=== PATIENT | male | born 1965 ===

== ENCOUNTER 2020-11-02 12:34 | Emergency (ER) | payer BC ==
[2020-11-02 13:25] VITALS: BP 150/91; PULSE 100
[2020-11-02] MEDS ORDERED: Sodium Chloride 0.9% 10 ML Syringe FLUSH PRN (13:37)
--- NOTE | 2020-11-02 13:46 | EDM.PDOC ---
<Marcus Payan - Last Filed: 11/04/20 07:26> ED HPI GENERAL MEDICAL PROBLEM - General Chief Complaint: Respiratory Problem Stated Complaint: POSS COVID Time Seen by Provider: 11/02/20 13:20 - Related Data Allergies Allergy/AdvReac Type Severity Reaction Status Date / Time No Known Allergies Allergy Verified 02/08/16 16:58 Home Meds: Home Meds Citalopram [Celexa] 20 mg PO DAILY 11/02/14 [History] Fenofibric Acid (Choline) [Trilipix] 45 mg PO DAILY 11/02/14 [History] Omeprazole 20 mg PO DAILY 11/02/14 [History] Ibuprofen 200 mg PO TID 11/02/20 [History] Departure - Departure Time of Disposition: 17:39 Disposition: Home, Self-Care 01 Condition: Fair Clinical Impression: COVID-19 determined by clinical diagnostic criteria, Pneumonia due to COVID-19 virus - Discharge Information *PRESCRIPTION DRUG MONITORING PROGRAM REVIEWED*: Not Applicable *COPY OF PRESCRIPTION DRUG MONITORING REPORT IN PATIENT JUAN JOSE: Not Applicable Instructions: COVID-19 Frequently Asked Questions, 10 Things You Can Do to Manage Your COVID-19 Symptoms at Home - CDC (08/20/2019), COVID-19: How to Protect Yourself and Others - CDC, COVID-19: Quarantine vs. Isolation - [facility] (02/05/2020) Referrals: Yuki Hankins, DATABASE ARCHITECT [Primary Care Provider] - Forms: ED Department Discharge Additional Instructions: Evaluation in the emergency room today in regards to signs and symptoms of COVID-19 illness. Chest x-ray reveals early COVID-19 pneumonia in left upper lobe left lower lobe and right lower lobe of lung. COVID-19 test was positive. Your oxygen level is satisfactory and therefore you were able to receive monoclonal antibody therapy called Regen-Cov. No problems were encountered with monoclonal antibody infusion and you were monitored for a sufficient period of time after the infusion. The idea behind monoclonal body treatment is to give you immediate antibodies to the COVID-19 virus and hopefully prevent worsening of illness and of pneumonia. You're considered contagious to others for a minimum of 10 and likely 12 days from the time of onset of illness by coughing droplets into the air. Thus quarantining at home is indicated. Continue Motrin 600 mg every 6 hours as needed for fever, headache or body aches. Suggest pulse oximeter to monitor your oxygen levels 4 times daily. Concern should arise if your oxygen levels are staying around 88% for 2 consecutive hours. This would mean a return trip to the emergency room for potential admission to the [facility]. Contact personal care physician if any further problems are encountered. <Junior Mart - Last Filed: 11/05/20 11:06> ED HPI GENERAL MEDICAL PROBLEM - General Source of Information: Reports: Patient History Limitations: Reports: No Limitations - History of Present Illness INITIAL COMMENTS - FREE TEXT/NARRATIVE: 55-year-old male presents the emergency department today with complaints of Covid-like symptoms. The patient states that he was with a family member in the emergency department on October 25, 2020 and his family member tested positive for Covid. He states that on the next day he developed a slight cough that he had for couple of days however that resolved for a day or 2 and then he states that the symptoms came back. He states that the cough has progressively worsened and its paroxysmal productive of clear to yellow sputum. He states he has shortness of breath at rest. He reports subjective fever and chills. He has had no nausea or vomiting however he states he has had diarrhea. He also reports loss of sense of taste and smell. Denies sore throat however he states he has had an intermittent headache. He has not been tested for Covid nor is he had the Covid vaccines. Patient denies any history of smoking. He states he is otherwise healthy. Headache Pain Score (Numeric/FACES): 3 Past Medical History Cardiovascular History: Reports: High Cholesterol Gastrointestinal History: Reports: GERD, Hemorrhoids, Other (See Below) Other Gastrointestinal History: hepatitis B Neurological History: Reports: Other (See Below) Other Neuro History: short term memory loss Psychiatric History: Reports: Depression - Past Surgical History Musculoskeletal Surgical History: Reports: Other (See Below) Social & Family History - Caffeine Use Caffeine Use: Reports: None ED ROS GENERAL - Review of Systems Review Of Systems: Comprehensive ROS is negative, except as noted in HPI. ED EXAM, GENERAL - Physical Exam Exam: See Below Exam Limited By: No Limitations General Appearance: Alert, WD/WN, Mild Distress Ears: Normal External Exam, Hearing Grossly Normal Nose: Normal Inspection Throat/Mouth: Normal Inspection, Normal Lips, Normal Voice, No Airway Compromise Head: Atraumatic Neck: Normal Inspection, Supple Respiratory/Chest: No Respiratory Distress, Normal Breath Sounds, No Accessory Muscle Use, Chest Non-Tender, Crackles (Right middle and lower lobe). No: Lungs Clear Cardiovascular: Normal Peripheral Pulses, Regular Rate, Rhythm, No Edema, No Murmur Peripheral Pulses: 2+: Radial (L), Radial (R) GI/Abdominal: Normal Bowel Sounds, Soft, Non-Tender, No Distention (Male) Exam: Deferred Rectal (Males) Exam: Deferred Back Exam: Normal Inspection Extremities: Normal Inspection Neurological: Alert, Oriented, Normal Cognition Psychiatric: Normal Affect, Normal Mood Skin Exam: Warm, Dry, Intact, Normal Color, No Rash Lymphatic: No Adenopathy Course - Vital Signs Text/Narrative:: As stated above, presents with Covid type symptoms after being around a family member who tested positive for Covid on October 25, 2020. Exam reveals fine crackles noted to the right middle and lower lobe. Paroxysmal cough with any inspiration. O2 saturations at the time of my exam are 95 to 97% on room air. He does have a low-grade temp of 101.4 and is otherwise hemodynamically stable. I have ordered a Covid swab, portable chest x-ray, labs to include a CBC, CMP, magnesium and C-reactive protein. Last Recorded V/S: Last Vital Signs Temp 101.4 F H 11/02/20 13:20 Pulse 100 11/02/20 13:20 Resp 20 11/02/20 13:20 BP 150/91 H 11/02/20 13:20 Pulse Ox 92 L 11/02/20 13:20 - Orders/Labs/Meds Labs: Laboratory Tests 11/02/20 11/02/20 11/02/20 Range/Units 13:37 14:35 15:15 WBC 2.92 L (4.23-9.07) K/mm3 RBC 5.14 (4.63-6.08) M/mm3 Hgb 15.6 (13.7-17.5) gm/dl Hct 45.5 (40.1-51.0) % MCV 88.5 (79.0-92.2) fl MCH 30.4 (25.7-32.2) pg MCHC 34.3 (32.2-35.5) g/dl RDW Std Deviation 40.4 (35.1-43.9) fL Plt Count 109 L D (163-337) K/mm3 MPV 9.8 (9.4-12.3) fl Neut % (Auto) 65.4 (34.0-67.9) % Lymph % (Auto) 27.1 (21.8-53.1) % [place] % (Auto) 7.2 (5.3-12.2) % Eos % (Auto) 0 L (0.8-7.0) Baso % (Auto) 0.0 L (0.1-1.2) % Neut # (Auto) 1.91 (1.78-5.38) K/mm3 Lymph # (Auto) 0.79 L (1.32-3.57) K/mm3 [place] # (Auto) 0.21 L (0.30-0.82) K/mm3 Eos # (Auto) 0.00 L (0.04-0.54) K/mm3 Baso # (Auto) 0.00 L (0.01-0.08) K/mm3 D-Dimer, Quantitative (0.19-0.50) mg/L Sodium 139 (136-145) mEq/L Potassium 3.8 (3.5-5.1) mEq/L Chloride 101 (98-107) mEq/L Carbon Dioxide 30 (21-32) mEq/L Anion Gap 11.8 (5-15) BUN 13 (7-18) mg/dL Creatinine 1.1 (0.7-1.3) mg/dL Est Cr Clr Drug Dosing 77.42 mL/min Estimated GFR (MDRD) > 60 (>60) mL/min BUN/Creatinine Ratio 11.8 L (14-18) Glucose 130 H (70-99) mg/dL Calcium 8.0 L (8.5-10.1) mg/dL Magnesium 1.9 (1.8-2.4) mg/dL Total Bilirubin 0.7 (0.2-1.0) mg/dL AST 118 H (15-37) U/L ALT 105 H (16-63) U/L Alkaline Phosphatase 97 (46-116) U/L C-Reactive Protein 7.6 H* (<1.0) mg/dL Total Protein 7.3 (6.4-8.2) g/dl Albumin 3.5 (3.4-5.0) g/dl Globulin 3.8 gm/dL Albumin/Globulin Ratio 0.9 L (1-2) SARS-CoV-2 RNA (ELE) Positive H (NEGATIVE) 11/02/20 Range/Units 15:15 WBC (4.23-9.07) K/mm3 RBC (4.63-6.08) M/mm3 Hgb (13.7-17.5) gm/dl Hct (40.1-51.0) % MCV (79.0-92.2) fl MCH (25.7-32.2) pg MCHC (32.2-35.5) g/dl RDW Std Deviation (35.1-43.9) fL Plt Count (163-337) K/mm3 MPV (9.4-12.3) fl Neut % (Auto) (34.0-67.9) % Lymph % (Auto) (21.8-53.1) % [place] % (Auto) (5.3-12.2) % Eos % (Auto) (0.8-7.0) Baso % (Auto) (0.1-1.2) % Neut # (Auto) (1.78-5.38) K/mm3 Lymph # (Auto) (1.32-3.57) K/mm3 [place] # (Auto) (0.30-0.82) K/mm3 Eos # (Auto) (0.04-0.54) K/mm3 Baso # (Auto) (0.01-0.08) K/mm3 D-Dimer, Quantitative 0.82 H (0.19-0.50) mg/L Sodium (136-145) mEq/L Potassium (3.5-5.1) mEq/L Chloride (98-107) mEq/L Carbon Dioxide (21-32) mEq/L Anion Gap (5-15) BUN (7-18) mg/dL Creatinine (0.7-1.3) mg/dL Est Cr Clr Drug Dosing mL/min Estimated GFR (MDRD) (>60) mL/min BUN/Creatinine Ratio (14-18) Glucose (70-99) mg/dL Calcium (8.5-10.1) mg/dL Magnesium (1.8-2.4) mg/dL Total Bilirubin (0.2-1.0) mg/dL AST (15-37) U/L ALT (16-63) U/L Alkaline Phosphatase (46-116) U/L C-Reactive Protein (<1.0) mg/dL Total Protein (6.4-8.2) g/dl Albumin (3.4-5.0) g/dl Globulin gm/dL Albumin/Globulin Ratio (1-2) SARS-CoV-2 RNA (ELE) (NEGATIVE) Meds: Medications Discontinued Medications Generic Name Dose Route Start Last Admin Trade Name Freq PRN Reason Stop Dose Admin Acetaminophen 975 mg 11/02/20 13:50 11/02/20 14:30 Acetaminophen 325 Mg Tab PO 11/02/20 13:51 975 mg NOW ONE Administration Diphenhydramine HCl 50 mg 11/02/20 15:29 Diphenhydramine 50 Mg/Ml Sdv IVPUSH ONETIME PRN hypersensitivity reaction Epinephrine HCl 0.3 mg 11/02/20 15:29 Epinephrine 1 Mg/Ml Sdv IM ONETIME PRN hypersensitivity reaction Famotidine 20 mg 11/02/20 15:29 Famotidine 20 Mg/2 Ml Sdv IVPUSH ONETIME PRN hypersensitivity reaction CASIRIVIMAB/IMDEVIMAB 10 ml/ 110 mls @ 220 mls/hr 11/02/20 15:45 11/02/20 16: 18 Sodium Chloride IV 11/02/20 16:14 220 mls/hr ONETIME ONE Administration Methylprednisolone Sodium Succinate 125 mg 11/02/20 15:29 Methylprednisolone Sodium Succinate 125 Mg/2 Ml Sdv IVPUSH ONETIME PRN hypersensitivity reaction Sodium Chloride 10 ml 11/02/20 13:37 Sodium Chloride 0.9% 10 Ml Syringe FLUSH ASDIRECTED PRN Keep Vein Open Sodium Chloride 30 ml 11/02/20 15:30 Sodium Chloride 0.9% 10 Ml Syringe FLUSH ASDIRECTED LÁZRAO - Re-Assessments/Exams Free Text/Narrative Re-Assessment/Exam: 11/02/20 14:33 Radiologist impression frontal view of the chest: Patchy areas of increased density are seen on both sides of the chest, worse on the right side. Heart size and mediastinum are within normal limits. Prior shoulder surgery is noted. No definite acute osseous abnormality is appreciated. Surgical clips are partially seen from prior cholecystectomy. Impression: 1. Findings have the appearance of Covid pneumonia. 2. Other findings believed to be chronic. 11/02/20 15:49 Hematology reveals a WBC of 2.92, hemoglobin 15.6, hematocrit 45.5, platelet count 119 Chemistry reveals a sodium of 139, potassium 3.8, carbon dioxide 30, anion gap 11.8, BUN 13, creatinine 1.1, glucose 130, calcium 8.0, AST 118, ALT 105, C- reactive protein 7.6 11/02/20 15:59 D-dimer is 0.82. I do highly suspect that the patient has Covid however his Covid swab has not yet come back. I do not feel that the patient will need a CTA at this time. Sepsis Event Note (ED) - Evaluation Sepsis Screening Result: Possible Sepsis Risk
[2020-11-02] MEDS ORDERED: Acetaminophen 325 MG Tab PO ONE (13:50)
--- NOTE | 2020-11-02 14:26 | CR ---
Chest: Frontal view of the chest was obtained. Comparison: Prior chest x-ray of 11/05/14. Patchy areas of increased density are seen on both sides of the chest, worse on the right side. Heart size and mediastinum are within normal limits. Prior right shoulder surgery is noted. No definite acute osseous abnormality is appreciated. Surgical clips are partially seen from prior cholecystectomy. Impression: 1. Findings have the appearance of COVID pneumonia. 2. Other findings believed to be chronic. Diagnostic code #3
[2020-11-02] MEDS ORDERED: EPINEPHrine 1 MG/ML SDV IM PRN (15:29)
[2020-11-02] MEDS ORDERED: methylPREDNISolone Sodium Succinate 125 MG/2 ML SDV IVPUSH PRN (15:29)
[2020-11-02] MEDS ORDERED: Famotidine 20 MG/2 ML SDV IVPUSH PRN (15:29)
[2020-11-02] MEDS ORDERED: diphenhydrAMINE 50 MG/ML SDV IVPUSH PRN (15:29)
[2020-11-02] MEDS ORDERED: Sodium Chloride 0.9% 10 ML Syringe FLUSH SCH (15:30)
== END 2020-11-02 18:00 | disposition home or self-care (01) ==
LOC: JD.ED 12:34
DX: U07.1 COVID-19 (principal); J12.82 Pneumonia due to coronavirus disease 2019; K21.9 Gastro-esophageal reflux disease without esophagitis; Z79.899 Other long term (current) drug therapy
CPT/HCPCS: 36415; 71045; 80053; 83735; 85025; 85379; 86140; 87635; 99284; A9270; M0243; Q0243; U0002